=== PATIENT | male | born 1995 | race Hispanic/Latino ===

== ENCOUNTER 2020-09-07 01:04 | Emergency (ER) | payer SELFPAY ==
[~2020-09-07] VITALS: Ht 195.6 cm; Wt 132.9 kg
[2020-09-07 01:56] LABS: CLARITY,URINE CLEAR (CLEAR); COLOR,URINE YELLOW (YELLOW); KETONES,URINE NEGATIVE (NEGATIVE); LEUKOCYTE ESTERASE ,URINE NEGATIVE (NEGATIVE); NITRITE,URINE NEGATIVE (NEGATIVE); PROTEIN,URINE DIPSTICK NEGATIVE (NEGATIVE); URINE UROBILINOGEN 0.2 mg/dL (0.2 - 1)
[2020-09-07 02:03] LABS: BACTERIA,URINE FEW /HPF; EPITHELIAL CELLS,URINE RARE /LPF
[2020-09-07 03:27] VITALS: BP 145/84
== END 2020-09-07 03:25 | disposition home or self-care (01) ==
LOC: ER 01:15
DX: N50.811 Right testicular pain (principal); N45.1 Epididymitis; F17.210 Nicotine dependence, cigarettes, uncomplicated
CPT/HCPCS: 76870; 81001; 93976; 99284